=== PATIENT | male | born 1985 | race Two or more races ===

== ENCOUNTER 2024-07-17 11:56 | Emergency (ER) | payer OTHER, SELFPAY ==
[2024-07-17 12:22] VITALS: BP 155/98; PULSE 73; RESP 18; TEMP 37.1; O2SAT 98; BMI 30.4
--- NOTE | 2024-07-17 12:33 | XR_ITS ---
Examination: PA lateral chest 2 views TECHNIQUE: Upright PA lateral chest 2 views Exam date and time: July 17, 2024 1252 hours INDICATIONS: Injury to the chest today, chest pain FINDINGS: Normal heart size No pneumothorax Clavicles ribs thoracic vertebral bodies appear intact IMPRESSION: No pneumothorax pulmonary contusion or hemothorax
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
[2024-07-17 13:29] LABS: Alanine Aminotransferase 38 U/L (10-49); Albumin, Serum 4.7 gm/dL (3.5-5.0); Albumin/Globulin Ratio 1.5 (1.2-2.2); Alkaline Phosphatase 75 U/L (46-116); Anion Gap 8 (7-16); Aspartate Amino Transferase 26 U/L (0-34); BUN/Creatinine Ratio 10 Ratio (12-20); Bilirubin,Total 0.8 mg/dL (0.3-1.2); Blood Urea Nitrogen 11 mg/dL (9-23); Calcium 9.1 mg/dL (8.3-10.6); Calcium (Corrected) 9.1 mg/dL (8.5-10.1); Carbon Dioxide 26.3 mMol/L (20.0-31.0); Chloride 106 mMol/L (98-107); Creatinine (Component) 1.1 mg/dL (0.6-1.3); Estimated Creatinine Clearance 105.9 mL/min (>60); Globulin 3.1 gm/dL (2.3-3.5); Glucose 109 mg/dL (74-106); Osmolality,Calculated 279 (275-295); Potassium 4.3 mMol/L (3.4-5.1); Sodium 140 mMol/L (136-145); Total Protein 7.8 gm/dL (5.7-8.2); eGFR > 60 See Note
[2024-07-17 13:46] LABS: Basophils % (Auto) 0 % (0-2.5); Eosinophils % (Auto) 0 % (0-10); Hematocrit 44.8 % (41.0-53.0); Hemoglobin 15.5 g/dL (13.5-16.0); Immature Granulocytes % (Auto) 0 % (0-0); Immature Granulocytes Auto 0.04 Thou/mm3 (0.00-0.00); Lymphocytes % (Auto) 22 % (10-50); Mean Corpuscular HGB Conc 34.6 g/dl (31.0-37.0); Mean Corpuscular Hemoglobin 30.1 pg (25.0-35.0); Mean Corpuscular Volume 87 fL (80-100); Monocytes # (Auto) 0.4 Thou/mm3 (0.0-0.8); Monocytes % (Auto) 5 % (0-12); Neutrophils # (Auto) 6.6 Thou/mm3 (1.8-7.7); Neutrophils % (Auto) 73 % (37-80); Nucleated Red Blood Cell % 0 /100 WBC (0); Platelet Count 281 Thou/mm3 (140-440); RDW Standard Deviation 42.5 fL (35.1-43.9); Red Blood Count 5.15 Miln/mm3 (4.50-5.90); White Blood Count 9.1 Thou/mm3 (3.8-10.6)
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
== END 2024-07-17 17:35 | disposition home or self-care (01) ==
PROVIDERS: Nurse Practitioner Family; Emergency Provider Family Medicine; PCP Physician Assistant
DX: J68.0 Bronchitis and pneumonitis due to chemicals, gases, fumes and vapors (principal); V58.5XXA Driver of pick-up truck or van injured in noncollision transport accident in traffic accident, initial encounter; Y92.413 State road as the place of occurrence of the external cause
CPT/HCPCS: 36415; 71046; 80053; 85025; 99283

== ENCOUNTER 2024-12-18 10:53 | Emergency (ER) | payer OTHER, SELFPAY ==
[2024-12-18 11:01] VITALS: BP 144/80; PULSE 62; RESP 16; TEMP 36.8; O2SAT 98; BMI 27.8
--- NOTE | 2024-12-18 11:03 | XR_ITS ---
Examination: CT brain head without contrast. 2-D sagittal coronal reconstructions Date and time of exam: December 18, 2024, 11:10 a.m. INDICATIONS: Onset dizziness blurred vision headaches beginning 4 days ago COMPARISON: September 16, 2007 CTDI: vol (mGy): 53.2 DLP: (mGycm): 1171 Technique: Multiple CT axial sections of the brain have been obtained, 5 mm slice thickness. Contrast has not been administered. 2-D sagittal, coronal reconstructions have been obtained Low dose protocols were performed. One or more of the following dose reduction techniques were used; automated exposure control, adjustment of the mA and/or KV according to patient size, use of iterative reconstruction technique. Findings: No significant ventricular enlargement. Intra-axial or extra-axial hemorrhage density is not seen. No mass effect or midline shift Basal cisterns are not remarkable. Fourth ventricle is midline. Cranial vault intact. Impression: Negative for acute hemorrhage, mass effect or midline shift As clinically warranted, consider brain MRI follow-up stroke protocol
--- NOTE | 2024-12-18 11:05 | EKG_ITS ---
[facility] Test Date: 2024-12-18 Pat Name: ELEAZAR PARKER Department: Room: - Gender: Male [employer]: : 1985 Requested By: Shun Partida Order Number: [id number] Reading MD: Shun Partida Measurements Intervals [place] Rate: 70 P: 37 NV: 163 QRS: 41 QRSD: 89 T: 55 QT: 368 QTc: 399 Interpretive Statements SINUS RHYTHM WITH SINUS ARRHYTHMIA POSSIBLE RIGHT VENTRICULAR CONDUCTION DELAY [RSR (QR) IN V1/V2] No previous ECG available for comparison /store/S0/[id number].pdf
[2024-12-18 11:34] VITALS: BP 147/96; PULSE 85; RESP 16; TEMP 37; O2SAT 100
--- NOTE | 2024-12-18 11:34 | PC.NURSE ---
PT HERE WITH C/O HEAD PRESSURE, BLURRED VISION, AND DIZINESS FOR 5 DAYS
[2024-12-18 11:35] LABS: Basophils # (Auto) 0.1 Thou/mm3 (0.0-0.2); Basophils % (Auto) 1 % (0-2.5); Eosinophils # (Auto) 0.1 Thou/mm3 (0.0-0.5); Eosinophils % (Auto) 1 % (0-10); Hematocrit 45.0 % (41.0-53.0); Hemoglobin 15.5 g/dL (13.5-16.0); Immature Granulocytes Auto 0.02 Thou/mm3 (0.00-0.00); Lymphocytes # (Auto) 2.6 Thou/mm3 (1.0-4.8); Lymphocytes % (Auto) 31 % (10-50); Mean Corpuscular HGB Conc 34.4 g/dl (31.0-37.0); Mean Corpuscular Hemoglobin 30.5 pg (25.0-35.0); Mean Corpuscular Volume 88 fL (80-100); Monocytes # (Auto) 0.6 Thou/mm3 (0.0-0.8); Monocytes % (Auto) 7 % (0-12); Neutrophils # (Auto) 5.1 Thou/mm3 (1.8-7.7); Neutrophils % (Auto) 60 % (37-80); Nucleated Red Blood Cell # 0.00 Thou/mm3 (0.00-0.00); Nucleated Red Blood Cell % 0 /100 WBC (0); Platelet Count 296 Thou/mm3 (140-440); RDW Standard Deviation 44.1 fL (35.1-43.9); Red Blood Count 5.09 Miln/mm3 (4.50-5.90); White Blood Count 8.5 Thou/mm3 (3.8-10.6)
[2024-12-18 11:49] LABS: B-Type Natriuretic Peptide < 20 pg/mL (0-100)
--- NOTE | 2024-12-18 11:51 | EDNOTE_ITS ---
ED Dizzyness RME/HPI General Chief Complaint: Dizziness Stated Complaint: DIZZY/BLURRY VISION/PRESSURE IN HEAD X 4 DAYS Time Seen by Provider: 12/18/24 11:06 Arrival date/time: 12/18/24 10:53 RME / HPI RME / HPI Narrative: 39-year-old male patient with past medical history of hypertension, came in for evaluation regarding head pressure and dizziness. This been ongoing for the last 4 days to 4 days, severity of symptoms mild. Associated with on and off blurry vision. Patient denies any nasal congestion. Denies any fever. Denies any upper or lower extremity weakness. Patient denies any slurring speech denies any head trauma. Denies any other complaints no medication was taken prior to ER visit. Related Data Home Medications ?Medication ?Instructions ?Recorded ?Confirmed omeprazole 40 mg capsule,delayed 40 mg PO QDAY ##0 release terbinafine HCl 250 mg tablet 250 mg PO QDAY #0 tabs 0 06/01/16 (Lamisil) Previous Rx's ?Medication ?Instructions ?Recorded azithromycin 250 mg tablet See Rx Instructions PO .COM PLEX #6 05/26/23 tabs methylprednisolone 4 mg tablets in 4 mg PO QAM #21 tab s 05/26/23 a dose pack (Medrol (Camacho)) albuterol sulfate 90 mcg/actuation 2 puff inhalation Q 4H PRN 07/17/24 aerosol inhaler shortness of breath or wheez ing #8.5 grams meclizine 50 mg tablet 50 mg PO BID PRN dizziness # 20 tabs 12/18/24 Allergies Allergy/AdvReac Type Severity Reaction Status Date / Time aspirin AdvReac Unknown ANXIETY Verified 12/18/24 10:56 Review of Systems Review of Systems Narrative Review of Systems: Review of system reviewed and within normal limits except mentioned in HPI ED Exam Narrative Physical exam: VITAL SIGNS: Reviewed. GENERAL APPEARANCE: Alert and interactive, follows commands, no acute distress, HEAD AND FACE: Non-traumatic. ENT: PERRL, pink conjunctivitis, eyelid no trauma, Mucous membrane moist. NECK: Supple, nontender, no nuchal rigidity. CHEST: No tenderness, no crepitus, no paradoxical movement, no retractions. LUNGS: Clear, well ventilated, symmetric, no rales, no wheezing, no ronchi, no stridor, good breath sounds bilaterally. HEART: Regular rate, regular rhythm, no murmur, no gallops. ABDOMEN: Soft, positive bowel sounds, nondistended, no guarding, nontender, no rebound, no masses, RECTAL: Deferred. GENITAL: Deferred. NEUROLOGICAL: Gross motor function intact sensory function intact, Appropriate for age. MUSCULOSKELETAL: low back nontender, full range of motion. EXTREMITIES: Nontender, full range of motion. SKIN: Color pink, dry, no rash, no lacerations, no abrasions, no contusions. LYMPHATICS: Deferred. Course Quality Measures none Orders Category Date Time Status EKG (ED ONLY) *Do not use* NOW Care 12/18/24 11:[address] head/brain wo con Stat Exams 12/18/24 11:03 Completed EKG (ED Only) Stat Exams 12/18/24 11:05 Draft B-Type Natriuretic Peptide Stat Lab 12/18/24 11:21 Completed CBC Stat Lab 12/18/24 11:21 Completed Comprehensive Metabolic Panel Stat Lab 12/18/24 11:21 Completed Free T4 (Free Thyroxine) Stat Lab 12/18/24 11:21 Completed Magnesium Stat Lab 12/18/24 11:21 Completed TSH [Thyroid Stimulating Hormone] Stat Lab 12/18/24 11:21 Completed Troponin I Stat Lab 12/18/24 11:21 Completed Urinalysis, C/S if Indicated Stat Lab 12/18/24 12:12 Completed Meclizine HCl [Antivert] Med 12/18/24 11:51 Discontinued 50 mg PO X1 ONE Vital Signs Vital signs: Vital Signs Temperature 98.2 F 12/18/24 11:01 Pulse Rate 62 12/18/24 11:01 Respiratory Rate 16 12/18/24 11:01 Blood Pressure 144/80 H 12/18/24 11:01 Pulse Oximetry (%) 98 12/18/24 11:01 Oxygen Delivery Method Room Air 12/18/24 11:01 Dizziness MDM Narrative MDM Narrative:: 39-year-old male patient with past medical history of hypertension, came in for evaluation regarding head pressure and dizziness. This been ongoing for the last 4 days to 4 days, severity of symptoms mild. Associated with on and off blurry vision. Patient denies any nasal congestion. Denies any fever. Denies any upper or lower extremity weakness. Patient denies any slurring speech denies any head trauma. Denies any other complaints no medication was taken prior to ER visit. EKG showed normal sinus rhythm, ventricular rate of 70 bpm, no ST segment elevation or depression noted. CT scan of the head came back unremarkable. I personally reviewed and interpreted the x-ray of this patient. There is no acute abnormalities found, no infiltrates no pneumothorax no hemothorax normal chest x-ray. Review of other structures was without significant abnormal findings also. I additionally reviewed the radiologist report and agree with the interpretation. Laboratory workup all came back normal no metabolic or pathologic abnormality noted. Results discussed with the patient. Patient was given meclizine with significant proved symptoms patient stable for discharge home. Patient is ambulatory with no recurrence of dizziness blurry vision or head pressure. Patient data External records reviewed:: None Clinical information provided by:: patient Social determinants that could affect healthcare access:: none Patient has the following chronic illnesses:: None How is presenting disease/condition affected by chronic disease/condition?: no chronic disease Evaluation data The following diagnostics were reviewed and interpreted by me:: lab results, radiology exam(s) and EKG tracing(s) Lab and/or radiology exams considered but not ordered:: None Interpretation Summary: None Medications / Prescriptions Medications or Prescriptions considered but not ordered:: None Medication administrations:: Medication Administration History Discontinued Medications Meclizine HCl (Meclizine Hcl 25 Mg Tablet) 50 mg PO X1 ONE Stop: 12/18/24 11:52 Last Admin: 12/18/24 11:54 Dose: 50 mg Documented By: [facility] Meclizine Consultations Consultation(s) initiated? (list below): No Diagnosis Dizziness Differential Diagnosis: benign paroxysmal positional vertigo and cerebrovascular accident Most likely diagnosis given after review of the tests above:: Dizziness Admission Indicated Admission indicated?: not indicated Admission Request Was there a request for admission?: No Disposition Plan Disposition Plan: Discharge Discharge Attestation Discharge Attestation: The patient and all family members were given an opportunity to ask questions and understood the discharge instructions. Discharge instructions specifically effects, indications for sooner follow up or return to the emergency department, and the expected course of current diagnosis. Patient condition: Stable Discharge Plan Plan Patient Disposition: HOME (Self Care) Discharge Disposition comment: stable Prescriptions/Referrals Prescriptions/Med Rec: New meclizine 50 mg tablet 50 mg PO BID PRN (Reason: dizziness) Qty: 20 0RF No Action omeprazole 40 MG capsule,delayed release(DR/EC) 40 mg PO QDAY Qty: 0 terbinafine HCl [Lamisil] 250 MG tablet 250 mg PO QDAY Qty: 0 azithromycin 250 mg tablet See Rx Instructions .ROUTE .COMPLEX Qty: 6 0RF Rx Instructions: For 250 mg dose pack: take 500 mg today (day 1), then 250 mg for 4 days (days 2-5) methylprednisolone [Medrol (Camacho)] 4 mg tablets,dose pack 4 mg PO QAM Qty: 21 0RF albuterol sulfate 90 mcg/actuation HFA aerosol inhaler 2 puff inhalation Q4H PRN (Reason: shortness of breath or wheezing) Qty: 8.5 0RF Referrals: Jonelle Orozco PA-C [Primary Care Provider, Family Practice] - In 1 week Problem List Clinical Impression: Dizziness Patient/Caregiver Discharge Instructions Discharge Activity: activity as tolerated Education Materials: Dizziness Balance Probs Fainting Additional Instructions: Thank you for the opportunity for serving you today. You are stable for discharged . You are advised to: Follow-up with your PCP in 1 to 2 days Return to ED for worsening of symptoms Increase oral fluids Take medication as prescribed Print Language: Lithuanian Stand Alone Forms: Jessica Award Info., Patient Portal Info Letter SUZI/MARIA ESTHER Supervising Physician SHAYY Supervising Physician: MD Pinky
[2024-12-18 11:52] LABS: Alanine Aminotransferase 27 U/L (10-49); Albumin, Serum 4.7 gm/dL (3.5-5.0); Albumin/Globulin Ratio 1.8 (1.2-2.2); Alkaline Phosphatase 80 U/L (46-116); Anion Gap 10 (7-16); Aspartate Amino Transferase 20 U/L (0-34); BUN/Creatinine Ratio 12 Ratio (12-20); Bilirubin,Total 0.4 mg/dL (0.3-1.2); Blood Urea Nitrogen 12 mg/dL (9-23); Calcium 9.2 mg/dL (8.3-10.6); Calcium (Corrected) 9.2 mg/dL (8.5-10.1); Carbon Dioxide 29.2 mMol/L (20.0-31.0); Chloride 103 mMol/L (98-107); Creatinine (Component) 1.0 mg/dL (0.6-1.3); Estimated Creatinine Clearance 108.9 mL/min (>60); Free T4 (Free Thyroxine) 1.24 ng/dL (0.89-1.76); Globulin 2.6 gm/dL (2.3-3.5); Glucose 109 mg/dL (74-106); Magnesium 2.2 mg/dL (1.6-2.6); Osmolality,Calculated 283 (275-295); Potassium 4.3 mMol/L (3.4-5.1); Sodium 142 mMol/L (136-145); Thyroid Stimulating Hormone 1.83 uIU/mL (0.55-4.78); Total Protein 7.3 gm/dL (5.7-8.2); Troponin I < 0.002 ng/mL (0.0-0.045); eGFR > 60 See Note
[2024-12-18] MEDS: MECLIZINE HCL 25 MG TABLET 50 MG PO (11:54)
[2024-12-18 12:26] LABS: Collection Type, Urine Clean Catch; Squamous Epithelial Cell,Urine 0 /hpf (0-5)
[2024-12-18 12:31] LABS: Bilirubin,Urine Negative (Negative); Blood,Urine Negative (Negative); Clarity,Urine Clear (Clear/Hazy); Color,Urine Colorless (Lt Yel-Yel); Culture Indicated,Urine Not Indicated; Glucose, Urine Negative (Negative); Ketones,Urine Negative (Negative); Leukocyte Esterase,Urine Negative (Negative); Nitrite,Urine Negative (Negative); PH,Urine 6.5 (5.0-7.0); Protein,Urine Negative (Neg - Trace); RBC,Urine < 1 /hpf (0-3); Specific Gravity,Urine 1.007 (1.001-1.035); Urobilinogen,Urine Negative mg/dL (0.0-1.0); WBC,Urine < 1 /hpf (0-5)
[2024-12-18 12:38] VITALS: BP 148/90; PULSE 59; RESP 18; TEMP 37; O2SAT 98
[2024-12-18 13:11] VITALS: BP 156/86; PULSE 63; RESP 16; TEMP 37.2; O2SAT 99
== END 2024-12-18 13:12 | disposition home or self-care (01) ==
PROVIDERS: Nurse Practitioner Family; Emergency Provider Family Medicine; PCP Physician Assistant
DX: R42 Dizziness and giddiness (principal); I10 Essential (primary) hypertension
CPT/HCPCS: 36415; 70450; 80053; 81001; 83735; 83880; 84439; 84443; 84484; 85025; 93005; 99284; A9270